=== PATIENT | female | born 1990 ===

== ENCOUNTER → 2018-10-14 21:25 | Outpatient (REF) | payer SELFPAY ==
[2018-10-14 22:18] LABS: Free T3, Triiodothyronine Free 3.95 pg/mL (2.77-5.27); T4 Total Thyroxine 6.83 ug/dL (5.5-11.0)
[2018-10-14 22:32] LABS: Thyroid Stimulating Hormone 3.11 uIU/mL (0.47-4.68)
== END ==
LOC: LAB 21:25
PROVIDERS: Visit Provider Naturopath
DX: E03.9 Hypothyroidism, unspecified (principal); Z00.00 Encounter for general adult medical examination without abnormal findings; R53.83 Other fatigue
CPT/HCPCS: 36415; 84436; 84443; 84481